=== PATIENT | male | born 1940 | race Caucasian/White ===

== ENCOUNTER 2022-06-26 03:15 | Emergency (ER) | payer MEDICARE ==
[2022-06-26 03:32] VITALS: BP 132/78
[2022-06-26 03:46] VITALS: BP 99/45
[2022-06-26 04:01] VITALS: BP 113/58
[2022-06-26 04:16] VITALS: BP 103/58
[2022-06-26 04:31] VITALS: BP 124/68
[2022-06-26] MEDS ORDERED: AMOX/K CLAV875 M1 PO (04:31)
== END 2022-06-26 04:56 | disposition home or self-care (01) ==
LOC: ED 03:15
DX: H66.91 Otitis media, unspecified, right ear (principal); Z20.822 Contact with and (suspected) exposure to COVID-19